=== PATIENT | male | born 1945 | race Caucasian/White ===

== ENCOUNTER 2017-10-20 16:21 | Emergency (ER) | payer MEDICARE, BC ==
[2017-10-20 16:30] VITALS: BP 166/90
[2017-10-20] MEDS ORDERED: COLC0.6T34 PO (17:31)
--- NOTE | 2017-10-20 17:31 | PHYS DOC ---
Past History Past Medical History: Diabetes, Hypertension Past Surgical History: No Surgical History Alcohol Use: None Drug Use: None Adult General Chief Complaint Chief Complaint: FOOT INJURY PAIN HPI HPI Patient is a 71 year old M who presents with right foot pain that started 2 days ago. He describes burning pain associated with redness and swelling to the big toe on his right foot. His pain is worse with palpation and movement. He denies any known injury. 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 He has no other associated symptoms. He hasn't no other exacerbating or relieving factors. Review of Systems Review of Systems Constitutional: Denies fever or chills [] Eyes: Denies change in visual acuity, redness, or eye pain [] HENT: Denies nasal congestion or sore throat [] Respiratory: Denies cough or shortness of breath [] Cardiovascular: No additional information not addressed in HPI [] GI: Denies abdominal pain, nausea, vomiting, bloody stools or diarrhea [] : Denies dysuria or hematuria [] Musculoskeletal: Denies back pain Integument: Denies skin lesions [] Neurologic: Denies headache, focal weakness or sensory changes [] Endocrine: Denies polyuria or polydipsia [] All other systems were reviewed and found to be within normal limits, except as documented in this note. Family History Family History No pertinent family medical history was reported Current Medications Current Medications Current medications reviewed Allergies Allergies Allergies Coded Allergies Type Severity Reaction Last Updated Verified No Known Drug Allergies 10/20/17 No Physical Exam Physical Exam Constitutional: Well developed, well nourished, no acute distress, non-toxic appearance. [] HENT: Normocephalic, atraumatic, Eyes: PERRLA, EOMI, conjunctiva normal, no discharge. [] Neck: Normal range of motion, no tenderness, supple, no stridor. [] Cardiovascular:Heart rate regular rhythm, Lungs & Thorax: Bilateral breath sounds clear to auscultation [] Abdomen: Bowel sounds normal, soft, no tenderness, no masses, no pulsatile masses. [] Skin: Warm, dry, no erythema, Extremities: Right foot: Moderate swelling and erythema over the right first MTP. Moderate tenderness to palpation in that area Neurologic: Alert and oriented X 3, normal motor function, normal sensory function, no focal deficits noted. [] Psychologic: Affect normal, judgement normal, mood normal. [] Current Patient Data Vital Signs Vital Signs Date Time Temp Pulse Resp B/P (MAP) Pulse Ox O2 Delivery O2 Flow Rate FiO2 10/20/17 16:30 97.9 82 16 98 Room Air EKG EKG [] Radiology/Procedures Radiology/Procedures [] Course & Med Decision Making Course & Med Decision Making Pertinent Labs and Imaging studies reviewed. (See chart for details) Raghav did have a uric acid level drawn however he decided not to wait for the results. Instead he preferred to follow-up with his primary care doctor in the next 2 days to discuss the results. Dragon Disclaimer Dragon Disclaimer This electronic medical record was generated, in whole or in part, using a voice recognition dictation system. Departure Departure: Impression: Primary Impression: Acute gout Disposition: HOME, SELF-CARE Condition: STABLE Referrals: ANGEL LUIS KNIGHT MD (PCP) Patient Instructions: Gout Additional Instructions: Raghav was seen in the emergency department for foot pain. No emergency medical condition was found on history or physical exam. His symptoms are most consistent with gout. He was started on colchicine. He is advised follow-up with his primary care doctor in the next 2-3 days for further management. Scripts Colchicine (COLCRYS) 0.6 Mg Tablet 1 TAB PO Q1HR Y for PAIN, #30 TAB 3 Refills Take 2 tabs initially followed by 1/h for a total of 3 doses for acute attack. If pain resolves. Prior to completing 3 doses Prov: BEATA ROSE MD 10/20/17 Problem Qualifiers Primary Impression: Acute gout Gout site: foot Gout etiology: unspecified cause Laterality: right Qualified Codes: M10.9 - Gout, unspecified BEATA ROSE MD Oct 20, 2017 17:31
[2017-10-20] MEDS ORDERED: COLCHICINE 0.6 MG TABLET PO ONE (17:45)
--- NOTE | 2017-10-21 10:48 | RAD ---
EXAM: Right foot 3 views. HISTORY: Right foot pain and swelling. COMPARISON: None. FINDINGS: There is a prominent ossicle at the tip of the lateral malleolus which may represent an old avulsion or an accessory ossicle. There is mild ossification at the insertion of the Achilles tendon. No fractures are identified. 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 Alignment is maintained. IMPRESSION: 1. 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 No acute fracture.
== END 2017-10-20 17:39 | disposition home or self-care (01) ==
LOC: ER 16:21
DX: M10.9 Gout, unspecified (principal); M79.671 Pain in right foot; E11.40 Type 2 diabetes mellitus with diabetic neuropathy, unspecified; I10 Essential (primary) hypertension
CPT/HCPCS: 36415; 73630; 84550; 99285

== ENCOUNTER 2019-05-01 17:42 | Emergency (ER) | payer MEDICARE, BC ==
[~2019-05-01] VITALS: Ht 170.2 cm; Wt 74.8 kg
[~2019-05-01 17:42] MED LIST: COLC0.6T34 PO
[2019-05-01 18:03] VITALS: BP 143/93
[2019-05-01] MEDS ORDERED: HEPARIN for IV BOLUS 10,000 UNIT/10 ML VIAL. ONE (18:14)
--- NOTE | 2019-05-01 18:14 | EKG ---
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
--- NOTE | 2019-05-01 18:25 | PHYS DOC ---
Past History Past Medical History: Diabetes, Hypertension Past Surgical History: No Surgical History Alcohol Use: None Drug Use: None Adult General Chief Complaint Chief Complaint: BLOOD SUGAR PROBLEM HPI HPI Patient is a 73-year-old male presenting to [facility] by private car initially told the triage staff upfront that he was having a blood sugar problem. Then later began to complain of chest pain central chest since 3 PM feeling very dizzy and weak and nauseous Past medical history hypertension also family history of coronary artery disease no other previous cardiac history that he knows of ED course: As soon as staff when out to check on that began to complain of chest pains about the patient right back into room [address] elevation [place] time of EKG was 1806 I interpret this at 1807 reactive to the STEMI at that time exactly. We then called for a stat transfer patient left this emergency department at 1820. I spoke with Dr. Cohen at approximately 1810 will be waiting for the patient at [place]. The risks and benefits of transfer were discussed with the this patient is a stat cardiac catheter she is aware of the risks and benefits and the patient will be transferred in ambulance. Patient was given heparin fentanyl brilinta. My orders and the patient also did receive a dose of aspirin immediately upon the STEMI EKG being done. Blood pressure was in the 140s heart rate was 60 there was no evidence of heart block patient did have poor skin signs but overall was actually a stable as can be considered given the underlying issue Review of Systems Review of Systems Limited by the acuity Current Medications Current Medications Current Medications Medications (Trade) Dose Ordered Sig/Arthur Start Time Stop Time Status Last Admin Dose Admin Fentanyl Citrate (Fentanyl 2ml Vial) 100 mcg STK-MED ONCE 05/01/19 18:14 05/01/19 18:14 DC Heparin Sodium (Porcine) (Heparin Sodium) 10,000 unit STK-MED ONCE 05/01/19 18:14 05/01/19 18:14 DC Ticagrelor (Brilinta) 180 mg 1X ONCE 05/01/19 18:30 05/01/19 18:31 05/01/19 18:23 180 MG Allergies Allergies Allergies Coded Allergies Type Severity Reaction Last Updated Verified No Known Drug Allergies 10/20/17 No Physical Exam Physical Exam Constitutional: Well developed, ill-appearing HENT: Normocephalic, atraumatic, bilateral external ears normal, oropharynx moist, no oral exudates, nose normal. [] Eyes: PERRLA, EOMI, conjunctiva normal, no discharge. [] Neck: Normal range of motion, no tenderness, supple, no stridor. [] Cardiovascular:Heart rate regular rhythm, no murmur [] Lungs & Thorax: Bilateral breath sounds clear to auscultation [] Abdomen: Bowel sounds normal, soft, no tenderness, no masses, no pulsatile masses. [] Skin: Pale cool diaphoretic Back: No tenderness, no CVA tenderness. [] Extremities: No tenderness, no cyanosis, no clubbing, ROM intact, no edema. [] Neurologic: Alert and oriented X 3, normal motor function, normal sensory function, no focal deficits noted. [] Psychologic: Mild anxiety noted Current Patient Data Vital Signs Vital Signs Date Time Temp Pulse Resp B/P (MAP) Pulse Ox O2 Delivery O2 Flow Rate FiO2 05/01/19 18:18 18 98 Room Air 05/01/19 18:03 98.1 59 Lab Results Laboratory Tests Test 05/01/19 17:49 Glucose (Fingerstick) 123 mg/dL (70-99) H EKG EKG []STEMI noted rate 53 this appears to be sinus bradycardia no heart block interpreted by me at 1807 Radiology/Procedures Radiology/Procedures [] Course & Med Decision Making Course & Med Decision Making Critical care time was 45 minutes exclusive of procedures.Pertinent Labs and Imaging studies reviewed. (See chart for details) for stemi critical illness. see hpi for mdm and ed course. [] Dragon Disclaimer Dragon Disclaimer This electronic medical record was generated, in whole or in part, using a voice recognition dictation system. Departure Departure: Impression: Primary Impression: ST elevation [place] (STEMI) Disposition: XFER [facility] HOSP Condition: GUARDED Referrals: ANGEL LUIS KNIGHT MD (PCP) IZABEL WATTS MD May 01, 2019 18:25
[2019-05-01] MEDS ORDERED: TICAGRELOR 90 MG TABLET. PO ONE (18:30)
[2019-05-01] MEDS ORDERED: HEPARIN for IV BOLUS 10,000 UNIT/10 ML VIAL. IV ONE (18:30)
[2019-05-01 18:35] LABS: BASO # 0.2 x10^3/uL (0.0-0.2); BASO % 2 % (0-3); EOS # 0.2 x10^3/uL (0.0-0.7); EOS % 1 % (0-3); HEMATOCRIT 42.2 % (39.0-53.0); HEMOGLOBIN 14.1 g/dL (13.0-17.5); LYMPH # 2.3 x10^3/uL (1.0-4.8); LYMPH % 20 % (24-48); MEAN CORPUSCULAR HEMOGLOBIN 31 pg (25-35); MEAN CORPUSCULAR HGB CONC 33 g/dL (31-37); MEAN CORPUSCULAR VOLUME 93 fL (79-100); MONO # 0.7 x10^3/uL (0.0-1.1); MONO % 6 % (0-9); NEUT # 8.1 x10^3uL (1.8-7.7); NEUT % 71 % (31-73); PLATELET COUNT 237 x10^3/uL (140-400); RED BLOOD COUNT 4.56 x10^6/uL (4.30-5.70); RED CELL DISTRIBUTION WIDTH 13.7 % (11.5-14.5); WHITE BLOOD COUNT 11.5 x10^3/uL (4.0-11.0)
[2019-05-01 18:48] LABS: ALBUMIN 4.1 g/dL (3.4-5.0); ALBUMIN/GLOBULIN RATIO 1.6 (1.0-1.7); CALCIUM 9.8 mg/dL (8.5-10.1); CREATININE 1.5 mg/dL (0.7-1.3); GFR 46.1; POTASSIUM 4.6 mmol/L (3.5-5.1); TOTAL BILIRUBIN 0.4 mg/dL (0.2-1.0); TOTAL PROTEIN 6.7 g/dL (6.4-8.2)
[2019-05-01] MEDS ORDERED: ASPIRIN 81 MG TAB.CHEW PO ONE (21:00)
== END 2019-05-01 18:20 | disposition short-term general hospital (02) ==
LOC: ER 17:42
DX: I21.3 ST elevation (STEMI) myocardial infarction of unspecified site (principal); E11.9 Type 2 diabetes mellitus without complications; I10 Essential (primary) hypertension
CPT/HCPCS: 36415; 80053; 82947; 84484; 85025; 93005; 96374; 96375; 99291; J1644; J3010

== ENCOUNTER → 2019-06-20 | Outpatient (CLI) | payer MEDICARE, BC ==
--- NOTE | 2019-06-20 16:47 | RAD ---
Examination: TESTICULAR/SCROTUM History: Testicular pain for more than one month Comparison/Correlation: None Findings: Scrotal ultrasound exam was performed. Right testicle measures 2.9 cm x 2.6 cm x 1 point centimeter. There are 2 cysts involving the right middle mid pole region. Internal echoes are noted within the cysts. The cysts are well circumscribed. Larger of these measures 0.8 cm x 0.6 x 0.7 cm. The smaller of these measures 0.6 by 0.6 x 0.5 cm. No flow identified within these structures. Internal echoes are noted within these structures. Normal flow is evident with no evidence of testicular torsion or epididymoorchitis. Small left hydrocele is present. No definite right hydrocele. Epididymides are unremarkable. No evidence of varicocele. Impression: Right testicular complicated cysts. Interval follow-up in 4 months to assess stability by ultrasound is recommended to exclude possibility of neoplastic etiology. Small left hydrocele. Electronically signed by: Scooter Israel MD (06/20/2019 4:44 PM) [facility]
== END | disposition home or self-care (01) ==
LOC: US 12:39
PROVIDERS: ATTEND Specialist
DX: L72.8 Other follicular cysts of the skin and subcutaneous tissue (principal); N43.3 Hydrocele, unspecified
CPT/HCPCS: 76870

== ENCOUNTER 2019-07-08 08:25 | Emergency (ER) | payer MEDICARE, BC ==
[~2019-07-08] VITALS: Ht 170.2 cm; Wt 74.8 kg
[2019-07-08] MEDS ORDERED: MECLIZINE 12.5 MG TABLET. PO STA (08:28)
[2019-07-08] MEDS ORDERED: ONDANSETRON PF 4 MG/2 ML VIAL. IVP ONE (08:30)
[2019-07-08] MEDS ORDERED: IV NORMAL SALINE 1,000ML 1,000 ML IV ONE ×2 (08:30→10:45)
--- NOTE | 2019-07-08 09:03 | PHYS DOC ---
Past History Past Medical History: Diabetes, Hypertension, DE Additional Past Medical Histor: ringing in ears Past Surgical History: Other Additional Past Surgical Histo: cornea transplant left eye 6 months ago; cardiac stent Alcohol Use: None Drug Use: None Adult General Chief Complaint Chief Complaint: DIZZY/LIGHT HEADED HPI HPI 73-year-old male presents via EMS with dizziness and vomiting. Patient woke up this morning and while he was pulling up his pants he heard a popping sound in his ear. He then began to get very dizzy which she describes as a room spinning sensation. This was followed by vomiting. He was feeling normal prior to this episode. He recently had a corneal transplant last week. He also had a heart attack earlier this year. He denies shortness of breath, chest pain or diap horesis. On arrival to the ED, the patient is still dizzy and vomiting. He denies fever or chills. Review of Systems Review of Systems Constitutional: Denies fever or chills [] Eyes: Denies change in visual acuity, redness, or eye pain [] HENT: Denies nasal congestion or sore throat [] Respiratory: Denies cough or shortness of breath [] Cardiovascular: No additional information not addressed in HPI [] GI: Vomiting. Denies abdominal pain, bloody stools or diarrhea [] : Denies dysuria or hematuria [] Musculoskeletal: Denies back pain or joint pain [] Integument: Denies rash or skin lesions [] Neurologic: Dizziness. Denies headache, focal weakness or sensory changes [] Endocrine: Denies polyuria or polydipsia [] All other systems were reviewed and found to be within normal limits, except as documented in this note. Current Medications Current Medications Current Medications Medications (Trade) Dose Ordered Sig/Arthur Start Time Stop Time Status Last Admin Dose Admin Meclizine HCl (Antivert) 25 mg 1X STAT 07/08/19 08:28 07/08/19 08:34 DC 07/08/19 08:51 25 MG Ondansetron HCl (Zofran) 4 mg 1X ONCE 07/08/19 08:30 07/08/19 08:34 DC 07/08/19 08:50 4 MG Sodium Chloride 1,000 ml @ 1,000 mls/hr 1X ONCE 07/08/19 08:30 07/08/19 09:29 07/08/19 08:49 1,000 MLS/HR Allergies Allergies Allergies Coded Allergies Type Severity Reaction Last Updated Verified No Known Drug Allergies 10/20/17 No Physical Exam Physical Exam Constitutional: Well developed, well nourished, no acute distress, non-toxic appearance. [] HENT: Normocephalic, atraumatic, bilateral external ears normal, oropharynx moist, no oral exudates, nose normal. [] Eyes: Left pupil dilated due to medication, EOMI, conjunctiva erythematous, no discharge. [] Neck: Normal range of motion, no tenderness, supple, no stridor. [] Cardiovascular:Heart rate regular rhythm, no murmur [] Lungs & Thorax: Bilateral breath sounds clear to auscultation [] Abdomen: Bowel sounds normal, soft, no tenderness, no masses, no pulsatile masses. [] Skin: Warm, dry, no erythema, no rash. [] Back: No tenderness, no CVA tenderness. [] Extremities: No tenderness, no cyanosis, no clubbing, ROM intact, no edema. [] Neurologic: Alert and oriented X 3, normal motor function, normal sensory function, no focal deficits noted. No nystagmus. [] Psychologic: Affect normal, judgement normal, mood normal. [] Current Patient Data Vital Signs Vital Signs Date Time Temp Pulse Resp B/P (MAP) Pulse Ox O2 Delivery O2 Flow Rate FiO2 07/08/19 08:45 58 17 141/74 (96) 99 Room Air 07/08/19 08:25 97.4 EKG EKG [] Radiology/Procedures Radiology/Procedures [] Impressions: CT HEAD INDICATION: Altered mental status COMPARISON: 09/17/2015 Exposure: One or more of the following individualized dose reduction techniques were utilized for this examination: 1. Automated exposure control 2. Adjustment of the mA and/or kV according to patient size 3. Use of iterative reconstruction technique TECHNIQUE: 5 mm contiguous axial images were obtained from the skull base to the vertex in both bone and soft tissue algorithm. FINDINGS: Mild bilateral periventricular white matter hypodensities likely chronic small vessel ischemic disease. No evidence of acute intracranial hemorrhage. No extra-axial fluid collections. No mass effect or midline shift. Ventricular size is appropriate. Basal cisterns are patent. No fractures identified.Cardenas-white differentiation is preserved.Globes and orbits are within normal limits. Paranasal sinuses and mastoid air cells are clear. IMPRESSION: No acute intracranial findings. Electronically signed by: Franki Tabares MD (07/08/2019 11:06 AM) [id number] DICTATED AND SIGNED BY: FRANKI TABARES MD DATE: 07/08/19 1106 CC: ESTELLA ESPINAL DO; ANGEL LUIS KNIGHT MD ~ Course & Med Decision Making Course & Med Decision Making Pertinent Labs and Imaging studies reviewed. (See chart for details) On arrival, the patient was very dizzy. He was given a liter of normal saline and 4 mg of Zofran IV. During my interview, his dizziness had improved. He is very tired. I will give him 25 mg of meclizine for further treatment of his dizziness. The patient was quite sleepy while in the ER. Her period of time he did not have the strength to stand up and walk. He has rested for a while. His labs are unremarkable. His urinalysis is negative for infection. His dizziness has resolved at this time. We will test his ability to stand and walk prior to discharge. When the patient stood up, he was very off balance. He was unable to take steps forward without falling. His only complaint at this time is pressure behind his eyes. I will admit the patient for his dizziness and ambulatory dysfunction. I spoke with Dr. Parker and he has accepted the patient for transfer and admission to [facility]. Given his sudden significant change in balance, there is concern for cerebellar stroke not visible on CT. He will get an MRI [place]. 38 minutes of critical care time was spent on this patient exclusive of other billable procedures. [] Dragon Disclaimer Dragon Disclaimer This electronic medical record was generated, in whole or in part, using a voice recognition dictation system. Departure Departure: Impression: Primary Impression: Dizziness Additional Impressions: Vertigo Ambulatory dysfunction Disposition: 02 XFER [facility] Admitting Physician: Dipika Parker Condition: STABLE Referrals: ANGEL LUIS KNIGHT MD (PCP) Problem Qualifiers ESTELLA ESPINAL DO Jul 08, 2019 09:03
[2019-07-08 09:15] LABS: BASO % 1 % (0-3); EOS # 0.2 x10^3/uL (0.0-0.7); EOS % 2 % (0-3); HEMATOCRIT 40.2 % (39.0-53.0); HEMOGLOBIN 13.6 g/dL (13.0-17.5); LYMPH # 0.7 x10^3/uL (1.0-4.8); LYMPH % 7 % (24-48); MEAN CORPUSCULAR HEMOGLOBIN 32 pg (25-35); MEAN CORPUSCULAR HGB CONC 34 g/dL (31-37); MEAN CORPUSCULAR VOLUME 93 fL (79-100); MONO # 0.4 x10^3/uL (0.0-1.1); MONO % 4 % (0-9); NEUT # 8.7 x10^3uL (1.8-7.7); NEUT % 87 % (31-73); PLATELET COUNT 200 x10^3/uL (140-400); RED BLOOD COUNT 4.31 x10^6/uL (4.30-5.70); RED CELL DISTRIBUTION WIDTH 14.4 % (11.5-14.5)
[2019-07-08 09:27] LABS: ALBUMIN 3.6 g/dL (3.4-5.0); ALBUMIN/GLOBULIN RATIO 1.3 (1.0-1.7); CALCIUM 8.6 mg/dL (8.5-10.1); CREATININE 1.2 mg/dL (0.7-1.3); GFR 59.7; POTASSIUM 4.7 mmol/L (3.5-5.1); TOTAL BILIRUBIN 0.8 mg/dL (0.2-1.0); TOTAL PROTEIN 6.4 g/dL (6.4-8.2)
--- NOTE | 2019-07-08 11:08 | RAD ---
CT HEAD INDICATION: Altered mental status COMPARISON: 09/17/2015 Exposure: One or more of the following individualized dose reduction techniques were utilized for this examination: 1. Automated exposure control 2. Adjustment of the mA and/or kV according to patient size 3. Use of iterative reconstruction technique TECHNIQUE: 5 mm contiguous axial images were obtained from the skull base to the vertex in both bone and soft tissue algorithm. FINDINGS: Mild bilateral periventricular white matter hypodensities likely chronic small vessel ischemic disease. No evidence of acute intracranial hemorrhage. No extra-axial fluid collections. No mass effect or midline shift. Ventricular size is appropriate. Basal cisterns are patent. No fractures identified.Cardenas-white differentiation is preserved.Globes and orbits are within normal limits. Paranasal sinuses and mastoid air cells are clear. IMPRESSION: No acute intracranial findings. Electronically signed by: Franki Tabares MD (07/08/2019 11:06 AM) [id number]
[2019-07-08 12:45] LABS: BARBITURATES NEG (NEG); BENZODIAZEPINES NEG (NEG); CANNABINOIDS NEG (NEG); COCAINE NEG (NEG); METHADONE NEG (NEG); OPIATES NEG (NEG); PHENCYCLIDINE NEG (NEG)
[2019-07-08 12:46] LABS: AMPHETAMINE/METHAMPHETAMINE NEG (NEG)
[2019-07-08 12:49] LABS: RBC,URINE RARE /HPF (0-2); WBC,URINE RARE /HPF (0-4)
[2019-07-08 12:50] LABS: BACTERIA,URINE 0 /HPF (0-FEW); BILIRUBIN,URINE NEG (NEG); CLARITY,URINE CLEAR; COLOR,URINE STRAW; GLUCOSE,URINE 100 mg/dL (NEG); NITRITE,URINE NEG (NEG); SQUAMOUS EPITHELIAL CELL,UR OCC /LPF; UROBILINOGEN,URINE 0.2 mg/dL (0.2 mg/dL)
[2019-07-08 14:46] VITALS: BP 153/76
== END 2019-07-08 15:05 | disposition short-term general hospital (02) ==
LOC: ER 08:25
DX: R42 Dizziness and giddiness (principal); R11.11 Vomiting without nausea; E11.9 Type 2 diabetes mellitus without complications; I10 Essential (primary) hypertension
CPT/HCPCS: 36415; 70450; 80053; 80307; 81001; 85025; 96361; 96374; 99291; J2405; J8597; P9612; J7030

== ENCOUNTER 2021-06-07 17:38 | Observation (INO) | payer MEDICARE, BC ==
[~2021-06-07] VITALS: Ht 170.2 cm; Wt 74.4 kg
--- NOTE | 2021-06-07 18:26 | PHYS DOC ---
Past History Past Medical History: Diabetes, Hypertension, ME Additional Past Medical Histor: ringing in ears (ERICK GLASGOW APRN) Past Surgical History: Other Additional Past Surgical Histo: cornea transplant left eye 6 months ago; cardiac stent (ERICK GLASGOW APRN) Alcohol Use: None Drug Use: None (ERICK GLASGOW APRN) General Adult EDM: Chief Complaint: MECHANICAL FALL HPI: HPI: Patient is a 75-year-old male who presents to the ER for multiple complaints. Patient states that he has been having increasing weakness. He is also reporting a nonproductive cough and nasal drainage. He states that he was getting out of his vehicle today and felt weak and fell backwards hitting his head. He denies losing consciousness. He denies any head or neck pain. He is on Eliquis. Patient denies fever, shortness of breath, chest pain, sore throat, abdominal pain, sick exposures. He is vaccinated for COVID-19. (ERICK GLASGOW APRN) Review of Systems: Review of Systems: 14 body systems of the review of systems have been reviewed. See HPI for pertinent positive and negative responses, otherwise all other systems are negative, nonpertinent or noncontributory (ERICK GLASGOW APRN) Current Medications: Current Meds: Current Medications Medications (Trade) Dose Ordered Sig/Arthur Start Time Stop Time Status Last Admin Dose Admin Sodium Chloride 1,000 ml @ 1,000 mls/hr 1X ONCE 06/07/21 18:30 06/07/21 19:29 UNV (ERICK LGASGOW APRN) Allergies: Allergies: Allergies Coded Allergies Type Severity Reaction Last Updated Verified No Known Drug Allergies 10/20/17 No (ERICK GLASGOW APRN) Physical Exam: PE: Constitutional: Well developed, well nourished, no acute distress, non-toxic appearance. [] HENT: Normocephalic, atraumatic, bilateral external ears normal, oropharynx moist, no oral exudates, nose normal, no bruising noted to head or face. [] Eyes: PERRL, EOMI, conjunctiva normal, no discharge. [] Neck: Normal range of motion, no bony spinal tenderness, supple, no stridor. [] Cardiovascular:Heart rate tachycardic rhythm, no murmur [] Lungs & Thorax: Bilateral breath sounds clear to auscultation [] Abdomen: Bowel sounds normal, soft, no tenderness, no masses, obese, no pulsatile masses. [] Skin: Warm, dry, no erythema, no rash. [] Back: No bony spinal tenderness, normal range of motion Extremities: No tenderness, no cyanosis, no clubbing, ROM intact, no edema, abrasions noted to bilateral elbows, patient has full range of motion of bilateral upper extremities and is neurovascularly intact. [] Neurologic: Alert and oriented X 3, normal motor function, normal sensory function, no focal deficits noted, patient moving all 4 extremities equally. [] Psychologic: Affect normal, judgement normal, mood normal. [] (ERICK GLASGOW APRN) Current Patient Data: Labs: Laboratory Tests Test 06/07/21 19:01 06/07/21 20:10 White Blood Count 5.1 x10^3/uL Red Blood Count 4.33 x10^6/uL Hemoglobin 14.0 g/dL Hematocrit 41.6 % Mean Corpuscular Volume 96 fL Mean Corpuscular Hemoglobin 32 pg Mean Corpuscular Hemoglobin Concent 34 g/dL Red Cell Distribution Width 13.8 % Platelet Count 145 x10^3/uL Neutrophils (%) (Auto) 73 % Lymphocytes (%) (Auto) 13 % Monocytes (%) (Auto) 13 % Eosinophils (%) (Auto) 2 % Basophils (%) (Auto) 0 % Neutrophils # (Auto) 3.7 x10^3uL Lymphocytes # (Auto) 0.6 x10^3/uL Monocytes # (Auto) 0.7 x10^3/uL Eosinophils # (Auto) 0.1 x10^3/uL Basophils # (Auto) 0.0 x10^3/uL Sodium Level 138 mmol/L Potassium Level 5.1 mmol/L Chloride Level 103 mmol/L Carbon Dioxide Level 25 mmol/L Anion Gap 10 Blood Urea Nitrogen 30 mg/dL Creatinine 1.4 mg/dL Estimated GFR (Cockcroft-Gault) 49.7 BUN/Creatinine Ratio 21 Glucose Level 194 mg/dL Lactic Acid Level 2.5 mmol/L Calcium Level 8.9 mg/dL Total Bilirubin 0.7 mg/dL Aspartate Amino Transf (AST/SGOT) 54 U/L Alanine Aminotransferase (ALT/SGPT) 39 U/L Alkaline Phosphatase 124 U/L Troponin I Quantitative < 0.017 ng/mL Total Protein 6.3 g/dL Albumin 3.4 g/dL Albumin/Globulin Ratio 1.2 Urine Collection Type Unknown Urine Color Yellow Urine Clarity Clear Urine pH 5.5 Urine Specific [place] 1.025 Urine Protein Neg Urine Glucose (UA) Neg mg/dL Urine Ketones (Stick) Trace mg/dL Urine Blood Neg Urine Nitrite Neg Urine Bilirubin Neg Urine Urobilinogen Dipstick 0.2 mg/dL Urine Leukocyte Esterase Neg Urine RBC 0 /HPF Urine WBC Rare /HPF Urine Squamous Epithelial Cells None /LPF Urine Bacteria Few /HPF Current Medications Medications (Trade) Dose Ordered Sig/Arthur Route PRN Reason Start Time Stop Time Status Last Admin Dose Admin Sodium Chloride 1,000 ml @ 1,000 mls/hr 1X ONCE IV 06/07/21 18:30 06/07/21 19:29 DC 06/07/21 19:03 Acetaminophen (Tylenol) 650 mg 1X ONCE PO 06/07/21 20:30 06/07/21 20:31 DC (ERICK GLASGOW DISASTER RECOVERY ANALYST) EKG: EKG: EKG performed by ER staff at 1828 shows sinus rhythm with a rate of 92, no STEMI read by Dr. Bill at 1849. [] (ERICK GLASGOW DISASTER RECOVERY ANALYST) Radiology/Procedures: Radiology/Procedures: PROCEDURE: CT HEAD AND CERVICAL SPINE WO Examination: CT head and cervical spine without contrast CT HEAD INDICATION: Reason: fall, hit head, on blood thinners / Spl. Instructions: / History: COMPARISON: 09/17/2015. Exposure: One or more of the following individualized dose reduction techniques were utilized for this examination: 1. Automated exposure control 2. Adjustment of the mA and/or kV according to patient size 3. Use of iterative reconstruction technique TECHNIQUE: 5 mm contiguous axial images were obtained from the skull base to the vertex in both bone and soft tissue algorithm. FINDINGS: Mild bilateral periventricular white matter hypodensities likely chronic small vessel ischemic disease. 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 No evidence of acute intracranial hemorrhage. No extra-axial fluid collections. No mass effect or midline shift. Ventricular size is appropriate. Basal cisterns are patent. No fractures identified.Cardenas-white differentiation is preserved.Globes and orbits are within normal limits. Paranasal sinuses and mastoid air cells are clear. CT CERVICAL SPINE INDICATION: Reason: fall, hit head, on blood thinners / Spl. Instructions: / History: COMPARISON: None Available. Technique: 2.5 mm contiguous axial images were obtained from the skull base through the cervicothoracic junction in both bone and soft tissue algorithm. A dditional sagittal and coronal reconstructions were also performed. FINDINGS: Vertebral body height and alignment are maintained. Cervical lordosis is preserved. The lateral masses of C1 are aligned upon C2. No fractures identified. The bony canal is patent throughout. Moderate intraductal disc height loss identified throughout cervical spine likely degenerative changes. There is C2-C3 fusion.. The paraspinous soft tissues are unremarkable. Visualized intracranial contents are unremarkable. Lung apices are clear. IMPRESSION: 1. No acute intracranial findings. 2. 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 3. No acute fracture cervical spine. 4. Moderate degenerative changes cervical spine. Electronically signed by: Franki Tabares MD (06/07/2021 7:08 PM) [id number] DICTATED AND SIGNED BY: FRANKI TABARES MD DATE: 06/07/211856 CC: ERICK GLASGOW APRN; ANGEL LUIS KNIGHT MD; MONIKA ARELLANO ~MTH0 0 [] (ERICK GLASGOW APRN) Radiology/Procedures: PROCEDURE: PORTABLE CHEST 1V Chest AP portable at 1844: Reason for examination: Cough and weakness. Comparison is made to previous study dated 02/09/2013. Electronic device is present over the mid left thorax. The heart size is normal. Mediastinum is unremarkable. Lung hernandez are clear. No acute bony abnormalities are seen. Impression: No acute cardiopulmonary disease. Electronically signed by: Kalli Stark MD (06/07/2021 9:37 PM) [facility] (SHANITA BILL DO) Heart Score: C/O Chest Pain: No Risk Factors: Risk Factors: DM, Current or recent (<one month) smoker, HTN, HLP, family history of CAD, obesity. Risk Scores: Score 0 - 3: 2.5% MACE over next 6 weeks - Discharge Home Score 4 - 6: 20.3% MACE over next 6 weeks - Admit for Clinical Observation Score 7 - 10: 72.7% MACE over next 6 weeks - Early Invasive Strategies (ERICK GLASGOW APRN) Course & Med Decision Making: Course & Med Decision Making Pertinent Labs and Imaging studies reviewed. (See chart for details) Patient is a 75-year-old male who presents to the ER for generalized weakness. Work-up in the ER consisted of blood work, urinalysis, EKG, chest x-ray, CT scan of head as he did fall and is on blood thinners. Patient treated with a liter of normal saline as he is mildly tachycardic with a rate of 100. CT scan of head was negative for any acute findings.Temperature recheck was 100.0, tylenol ordered. Chest x-ray read by physician is negative for any acute findings. Urinalysis is negative. Patient was noted to have lactic acidosis and elevated kidney function. Patient is very unsteady on feet. Patient's is concerned a bout patient being discharged home as he is weak and has fallen and he is on blood thinners. I spoke to Dr. Victor and discussed patient's case with him and he agreed to admit the patient for observation for fall. Orthostatic vital signs ordered per Dr. Victor. Bridge orders placed and care transferred.[id number] (ERICK GLASGOW APRN) Dragon Disclaimer: Dragon Disclaimer: This electronic medical record was generated, in whole or in part, using a voice recognition dictation system. (ERICK GLASGOW APRN) Departure Departure: Impression: Primary Impression: Generalized weakness Additional Impressions: Fall Qualified Codes: W19.XXXA - Unspecified fall, initial encounter COVID-19 Lactic acidosis Disposition: ADMITTED INPATIENT Admitting Physician: Meet Victor (ERICK GLASGOW APRN) Admitting Physician: Meet Victor (SHANITA BILL DO) Condition: STABLE Referrals: ANGEL LUIS KNIGHT MD (PCP) Attending Signature Attending Signature I have reviewed the PA/BLAST FURNACE SUPERVISOR's note and plan of care. I was available for consultation as needed during the patient's visit in the emergency department. I agree with the clinical impression, plan, and disposition. COVID-19 CRITERIA: The patient was evaluated during the global COVID-19 pandemic, and that diagnosis was suspected/considered upon their initial presentation. Their evaluation, treatment and testing was consistent with current guidelines for patients who present with complaints or symptoms that may be related to COVID-19. (SHANITA BILL DO) ERICK GLASGOW APRN Jun 07, 2021 18:26 SHANITA BILL DO Jun 07, 2021 22:21
[2021-06-07] MEDS ORDERED: IV NORMAL SALINE 1,000ML 1,000 ML IV ONE (18:30)
--- NOTE | 2021-06-07 18:41 | EKG ---
[address] [address] Test Date: 2021-06-07 Test Time: 18:28:09 Pat Name: APRIL AVILA Department: Room: Gender: [facility] Partner: AKOSUA : 1945 Requested By: ERICK GLASGOW Order Number: [id number] Reading MD: Dejan Londono Measurements Intervals [place] Rate: 92 P: 42 NM: 168 QRS: -28 QRSD: 98 T: 38 QT: 346 QTc: 433 Interpretive Statements SINUS RHYTHM LEFTWARD AXIS LOW LIMB LEAD VOLTAGE QRS(T) CONTOUR ABNORMALITY CONSISTENT WITH INFERIOR INFARCT PROBABLY OLD T ABNORMALITY IN ANTERIOR LEADS ABNORMAL ECG Electronically Signed On 06-09-2021 12:47:01 CDT by Dejan Londono
--- NOTE | 2021-06-07 19:11 | RAD ---
Examination: CT head and cervical spine without contrast CT HEAD INDICATION: Reason: fall, hit head, on blood thinners / Spl. Instructions: / History: COMPARISON: 09/17/2015. Exposure: One or more of the following individualized dose reduction techniques were utilized for thi s examination: 1. Automated exposure control 2. Adjustment of the mA and/or kV according to patient size 3. Use of iterative reconstruction technique TECHNIQUE: 5 mm contiguous axial images were obtained from the skull base to the vertex in both bone and soft tissue algorithm. FINDINGS: Mild bilateral periventricular white matter hypodensities likely chronic small vessel ischemic diseas e. 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 No evidence of acute intracranial hemorrhage. No extra-axial fluid collections. No mass effect or midline shift. Ventricular size is appropriate. Basal cisterns are patent. No fractures identified.Cardenas-white differentiation is preserved.Globes and orbits are within normal l imits. Paranasal sinuses and mastoid air cells are clear. CT CERVICAL SPINE INDICATION: Reason: fall, hit head, on blood thinners / Spl. Instructions: / History: COMPARISON: None Available. Technique: 2.5 mm contiguous axial images were obtained from the skull base through the cervicothorac ic junction in both bone and soft tissue algorithm. Additional sagittal and coronal reconstructions were also performed. FINDINGS: Vertebral body height and alignment are maintained. Cervical lordosis is preserved. The l ateral masses of C1 are aligned upon C2. No fractures identified. The bony canal is patent throughout. Moderate intraductal disc height loss identified throughout cervical spine likely degenerative change s. There is C2-C3 fusion.. The paraspinous soft tissues are unremarkable. Visualized intracranial contents are unremarkable. L yan apices are clear. IMPRESSION: 1. No acute intracranial findings. 2. 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 3. No acute fracture cervical spine. 4. Moderate degenerative changes cervical spine. Electronically signed by: Franki Tabares MD (06/07/2021 7:08 PM) [id number]
[2021-06-07 19:26] LABS: BASO % 0 % (0-3); EOS # 0.1 x10^3/uL (0.0-0.7); EOS % 2 % (0-3); HEMATOCRIT 41.6 % (39.0-53.0); LYMPH # 0.6 x10^3/uL (1.0-4.8); LYMPH % 13 % (24-48); MEAN CORPUSCULAR HEMOGLOBIN 32 pg (25-35); MEAN CORPUSCULAR HGB CONC 34 g/dL (31-37); MEAN CORPUSCULAR VOLUME 96 fL (79-100); MONO # 0.7 x10^3/uL (0.0-1.1); MONO % 13 % (0-9); NEUT # 3.7 x10^3uL (1.8-7.7); NEUT % 73 % (31-73); PLATELET COUNT 145 x10^3/uL (140-400); RED BLOOD COUNT 4.33 x10^6/uL (4.30-5.70); RED CELL DISTRIBUTION WIDTH 13.8 % (11.5-14.5); WHITE BLOOD COUNT 5.1 x10^3/uL (4.0-11.0)
[2021-06-07 19:42] LABS: CALCIUM 8.9 mg/dL (8.5-10.1); CREATININE 1.4 mg/dL (0.7-1.3); GFR 49.7; POTASSIUM 5.1 mmol/L (3.5-5.1)
[2021-06-07 19:56] LABS: ALBUMIN 3.4 g/dL (3.4-5.0); ALBUMIN/GLOBULIN RATIO 1.2 (1.0-1.7); TOTAL BILIRUBIN 0.7 mg/dL (0.2-1.0); TOTAL PROTEIN 6.3 g/dL (6.4-8.2)
[2021-06-07] MEDS ORDERED: ACETAMINOPHEN 325 MG TABLET PO ONE (20:30)
[2021-06-07 20:56] LABS: BILIRUBIN,URINE NEG (NEG); CLARITY,URINE CLEAR; COLOR,URINE YELLOW; GLUCOSE,URINE NEG (NEG); NITRITE,URINE NEG (NEG); RBC,URINE 0 /HPF (0-2); UROBILINOGEN,URINE 0.2 mg/dL (0.2 mg/dL); WBC,URINE RARE /HPF (0-4)
[2021-06-07 20:57] LABS: BACTERIA,URINE FEW /HPF (0-FEW)
--- NOTE | 2021-06-07 21:39 | RAD ---
Chest AP portable at 1844: Reason for examination: Cough and weakness. Comparison is made to previous study dated 02/09/2013. Electronic device is present over the mid left thorax. The heart size is normal. Mediastinum is unrem arkable. Lung hernandez are clear. No acute bony abnormalities are seen. Impression: No acute cardiopulmonary disease. Electronically signed by: Kalli Stark MD (06/07/2021 9:37 PM) [facility]
[2021-06-07 22:40] VITALS: BP 149/74
[2021-06-08] MEDS ORDERED: ATOR40TA59 PO (00:47)
[2021-06-08] MEDS ORDERED: VITA25006 PO (00:47)
[2021-06-08] MEDS ORDERED: ACYC-12 PO (00:47)
[2021-06-08] MEDS ORDERED: ASCO500C PO (00:47)
[2021-06-08] MEDS ORDERED: INSU100C4 SQ (00:47)
[2021-06-08] MEDS ORDERED: METF-658 PO (00:47)
[2021-06-08] MEDS ORDERED: BRIM5DRO2 OP (00:47)
[2021-06-08] MEDS ORDERED: ASPI-630 PO (00:47)
[2021-06-08] MEDS ORDERED: CITA20TA6 PO (00:47)
[2021-06-08] MEDS ORDERED: NITR0.4T22 SL (00:47)
[2021-06-08] MEDS ORDERED: DICL100G28 TP (00:47)
[2021-06-08] MEDS ORDERED: PRED5DRO20 OS (00:47)
[2021-06-08] MEDS ORDERED: INSU100I32 SQ (00:47)
[2021-06-08 06:39] VITALS: BP 139/73
[2021-06-08 11:08] VITALS: BP 152/75
[2021-06-08] MEDS ORDERED: INSULIN LISPRO 300 UNITS/3 ML VIAL. SQ SCH (12:30)
[2021-06-08 14:16] LABS: CALCIUM 8.6 mg/dL (8.5-10.1); CREATININE 1.3 mg/dL (0.7-1.3); GFR 54.1; POTASSIUM 4.3 mmol/L (3.5-5.1)
[2021-06-08 15:04] VITALS: BP 164/83
--- NOTE | 2021-06-08 15:34 | HP ---
HISTORY OF PRESENT ILLNESS: The patient is a 75-year-old male patient who was brought to the Emergency Room with multiple complaints. He stated he has been having increasing weakness. He is also reporting a nonproductive cough and nasal drainage. He states that he was getting out of his vehicle today and felt weak and fell backwards, hitting his head. He denied any loss of consciousness. Denied any headache or neck pain. He is on Eliquis, but denied any fever, shortness of breath, chest pain, sore throat, abdominal pain, sick exposure. He was vaccinated for COVID-19 x 2 in November of this year. He was extensively investigated in the Emergency Room and has had an EKG, which showed that he was in sinus rhythm with a heart rate of 92 beats per minute. No ST segment elevation or myocardial infarction. He has had a CT scan of the head and the cervical spine. CT scan of the head showed no evidence of intracranial finding. Small hypodensity, left cerebellum, likely an old infarct. No acute fracture of cervical spine; however, the patient has moderate degenerative changes of cervical spine. His lab work showed white cell count was normal with normal hemoglobin, hematocrit, and platelet count. His chemistry showed that he has chronic kidney disease. Urinalysis was essentially unremarkable; however, his coronavirus by PCR was positive. The patient was admitted with generalized weakness, mechanical fall, COVID-19 infection together with lactic acidosis. He was treated with IV, received 1 liter of normal saline, and continued on his insulin sliding scale as well as Lantus insulin and was admitted for further evaluation and treatment. PAST MEDICAL HISTORY: Significant for type 2 diabetes mellitus, hypertension, hyperlipidemia, history of benign prostatic hypertrophy, left-sided herpes zoster ophthalmicus, glaucoma and according to the patient, has a history of coronary artery disease and stent deployment. He has also had a history of gout. PAST SURGICAL HISTORY: Significant for tonsillectomy, PCI and stent deployment, as well as colonoscopy. ALLERGIES: He has no known drug allergies. MEDICATIONS: He is currently on acyclovir 400 mg twice a day, atorvastatin calcium 40 mg daily, nitroglycerin 0.4 mg sublingually every 5 minutes x 3, aspirin 81 mg once a day, diclofenac sodium 1 gram topically 4 times a day, citalopram hydrobromide 20 mg daily, prednisolone acetate 1 drop to both eyes twice a day. He is also on Combigan eyedrops 1 drop to both eyes twice a day, metformin extended release 500 mg daily. He is on NovoLog insulin 3 units before meals and Basaglar KwikPen 9 units at bedtime. He is on ascorbic acid 500 mg daily, vitamin D3/folic acid 1 capsule once a day. He is on colchicine 0.6 mg every hour as needed. FAMILY HISTORY: He has five brothers, all younger and apparently healthy. He had a half sister who is because of complication of diabetes. His father at age of 66 because of myocardial infarction, and his mother also at age of 66 because of myocardial infarction. SOCIAL HISTORY: He lives with his , has 1 son. He is an ex-smoker, quit 30 years ago. He does not drink alcohol or use recreational drugs. She worked for the [employer]. REVIEW OF SYSTEMS: The patient has glaucoma and left-sided herpes zoster ophthalmicus. However, he denied any macular degeneration. He has ringing in both ears, but denied any nosebleed or stuffy nose or postnasal drip. Denied any sore throat, sore tongue, toothache, hoarseness of voice or difficulty swallowing. Denied any nausea, vomiting, diarrhea or constipation. Denied any hematemesis, melena or hematochezia. Denied any dysuria, frequency or hematuria. PHYSICAL EXAMINATION: GENERAL: On arrival to the Emergency Room, he looked well and was clearly in no apparent respiratory distress. There was no pallor, jaundice, cyanosis or thyromegaly. No jugular venous distention. No lower limb edema. VITAL SIGNS: His heart rate was 105, blood pressure was 153/79, temperature was 99.5, respiratory rate was 18, and oxygen saturation was 92% on room air. HEAD, EYES, EARS, NOSE, AND THROAT: Showed normocephalic, atraumatic. NECK: Supple. HEART: Showed normal first and second heart sounds. No gallop, rub, or murmur. CHEST: Clear to auscultation. No crepitation or rhonchi. ABDOMEN: Distended, soft, nontender. NEUROLOGIC: He was hard of hearing. He definitely has left-sided ptosis, but all other cranial nerves intact. He moves extremities without difficulty, ambulates without assistance or assistive devices. LABORATORY DATA: On arrival, his white cell count was 5100, hemoglobin 14, hematocrit 42, MCV 96 and platelet count of 145,000 with normal manual differential. His chemistry showed a serum sodium 138, potassium 5.1, chloride 103, bicarbonate 25, anion gap of 10, BUN 30, creatinine 1.4. Estimated GFR was 49 mL per minute. His glucose 194 , calcium was 8.9. Total bilirubin, AST, ALT, alkaline phosphatase slightly elevated. Total protein 6.3, albumin was 3.4. Urinalysis showed the urine was yellow, clear with a pH of 5.5, specific gravity of 1.025. Urine was negative for protein, glucose, trace of blood, negative for nitrite and leukocyte esterase. There are no rbc's, rare wbc's and very few bacteria, and his coronavirus by PCR was positive. ASSESSMENT AND PLAN: The patient was admitted with generalized weakness and mechanical fall. He was found to be positive for coronavirus infection, although he is mostly asymptomatic. Has also lactic acidosis that has resolved. JOHANN DR: Antonio TID: [id number]
--- NOTE | 2021-06-08 16:33 | DISCH ---
HOME HEALTH DISCHARGE/MEDS DISCHARGE INFORMATION: Discharge Date: Jun 08, 2021 Final Diagnosis: Problems Medical Problems: (1) COVID-19 Status: Acute (2) Fall Status: Acute (3) Generalized weakness Status: Acute (4) Lactic acidosis Status: Acute Condition on Discharge: Stable CODE STATUS: Code Status: Full HOME HEALTH: Face to Face: I certify this patient is under my care and that I, or a nurse practitioner or physician's library clerical assistant working with me, had a face to face encounter that meets the physician face to face encounter requirements with this patient on 06/08/2021 Medical Condition(s): Other Intermediate For: Medication Management Physical Therapy For: Evalulation/Treatment Occupational Therapy For: Evaluation/Treatment POST DISCHARGE ORDERS: Activity Instructions for Disc: Activity as tolerated DIET AFTER DISCHARGE: Cardiac CERTIFICATION STATEMENT: Certification Statement: Based on the above finding, I certify that this patient is confined to the home and needs intermittent retirement care, physical therapy and/or speech therapy, or continues to need occupational therapy.~ This patient is under my care, and I have initiated the establishment of the plan of care.~ This patient will be followed by myself or a community physician who will periodically review the plan of care. DISCHARGE MEDICATIONS: Home Meds Active Scripts Colchicine (COLCRYS) 0.6 Mg Tablet, 1 TAB PO Q1HR PRN for PAIN, #30 TAB 3 Refills Take 2 tabs initially followed by 1/h for a total of 3 doses for acute attack. If pain resolves. Prior to completing 3 doses Prov:BEATA ROSE MD 10/20/17 Reported Medications Prednisolone Acetate/Pf (Prednisolone Acet 1% Eye Drop) 5 Ml Drops.susp, 1 DROP OS BID for . for 30 Days, #1 BOTTLE 0 Refills 06/08/21 Insulin Glargine,Hum.rec.anlog (Basaglar Kwikpen U-100) 100 Unit/1 Ml Insuln.pen, 9 UNIT SQ QHS for GLUCOSE, EACH 06/08/21 Insulin Aspart (NOVOLOG) 100 Unit/1 Ml Cartridge, 3 UNIT SQ TIDWMEALS for GLUCOSE, SYR 06/08/21 Brimonidine Tartrate/Timolol (COMBIGAN EYE DROPS) 5 Ml Drops, 5 ML OP BID for EYES, DROP 06/08/21 Acyclovir (ACYCLOVIR) 400 Mg Tablet, 1 TAB PO BID for ., #60 TAB 3 Refills 06/08/21 Diclofenac Sodium (Diclofenac Sodium) 100 Gm Gel..gram., 1 RONEN TP PRN QID for FEET for 21 Days, #100 GM 0 Refills 06/08/21 Ascorbic Acid (VITAMIN C) 500 Mg Capsule.er, 1 CAP PO DAILY for SUPPLEMENT for 30 Days, #30 CAP 0 Refills 06/08/21 Vitamin D3/Folic Acid (Noxifol-D3 2,500 Unit-1 mg Tab) 2,500 Unit Tablet, 400 UNIT PO DAILY for SUPPLEMENT, TAB 06/08/21 Atorvastatin Calcium (ATORVASTATIN CALCIUM) 40 Mg Tablet, 1 TAB PO DAILY for HLD, #30 TAB 5 Refills 06/08/21 Metformin Hcl (METFORMIN HCL ER) 500 Mg Tab.er.24h, 1 TAB PO DAILY for GLUCOSE, #90 TAB 3 Refills 06/08/21 Aspirin (ASPIRIN) 81 Mg Tab.chew, 81 MG PO DAILY for HEART HEALTH, TAB 06/08/21 Citalopram Hydrobromide (CITALOPRAM HBR) 20 Mg Tablet, 20 MG PO DAILY for ., TAB 06/08/21 Nitroglycerin (NITROGLYCERIN SubLingual) 0.4 Mg Tab.subl, 0.4 MG SL PRN Q5MIN PRN for CHEST PAIN, ML 06/08/21 BRIAN LOUISE MD Jun 08, 2021 16:33
[2021-06-08] MEDS ORDERED: INSULIN GLARGINE SYRINGE. SQ SCH (21:00)
== END 2021-06-08 17:34 | disposition home or self-care (01) ==
LOC: ER 17:38 → 1 SOUTH 21:49 → INTOOBSV 21:49
PROVIDERS: ADMIT Hospitalist; ATTEND Hospitalist
DX: U07.1 COVID-19 (principal); R53.1 Weakness; I25.10 Atherosclerotic heart disease of native coronary artery without angina pectoris; I12.9 Hypertensive chronic kidney disease with stage 1 through stage 4 chronic kidney disease, or unspecified chronic kidney disease; N18.9 Chronic kidney disease, unspecified; E87.2 Acidosis; I25.2 Old myocardial infarction; E78.5 Hyperlipidemia, unspecified; H93.13 Tinnitus, bilateral; N40.0 Benign prostatic hyperplasia without lower urinary tract symptoms; Z79.01 Long term (current) use of anticoagulants; Z87.891 Personal history of nicotine dependence; Z94.7 Corneal transplant status; Z95.5 Presence of coronary angioplasty implant and graft; W18.30XA Fall on same level, unspecified, initial encounter; Y92.89 Other specified places as the place of occurrence of the external cause; Y93.89 Activity, other specified; Y99.8 Other external cause status
CPT/HCPCS: 36415; 70450; 71045; 72125; 80048; 80053; 81001; 82947; 83605; 84484; 85025; 87426; 93005; 96360; 97162; 97166; 97535; 99285; G0378; J1815; J7030; U0003; G0379

== ENCOUNTER → 2021-12-27 | Outpatient (CLI) | payer MEDICARE, BC ==
[~2021-12-27] MED LIST changes: +ACYC-12 PO; +ASCO500C PO; +ASPI-630 PO; +ATOR40TA59 PO; +BRIM5DRO2 OP; +CITA20TA6 PO; +DICL100G28 TP; +INSU100C4 SQ; +INSU100I32 SQ; +METF-658 PO; +NITR0.4T22 SL; +PRED5DRO20 OS; +VITA25006 PO
--- NOTE | 2021-12-27 17:38 | CARD ---
MR#: [id number] Date of Study: 12/27/2021 Ordering Physician: BILL LONDONO, Referring Physician: Kaela MINA: Toney Rainey [facility] APPROVED REPORT EXAM: Two-dimensional and M-mode echocardiogram with Doppler and color Doppler. Other Information Quality : FairHR: 63bpm Rhythm : NSR INDICATION Cardiac Disease: CAD RISK FACTORS Hypertension Hyperlipidemia 2D DIMENSIONS Left Atrium(2D)3.6 (1.6-4.0cm)IVSd1.1 (0.7-1.1cm) Aortic Root(2D)3.7 (2.0-3.7cm)LVDd5.4 (3.9-5.9cm) LVOT Diameter2.1 (1.8-2.4cm)PWd0.8 (0.7-1.1cm) LVDs4.5 (2.5-4.0cm)FS (%) 18.2 % SV53.6 ml Aortic Valve AoV Peak Duane.116.3cm/sAoV VTI23.3cm AO Peak GR.5.4mmHgLVOT Peak Duane.77.8cm/s LVOT VTI 15.54cmAO Mean GR.3mmHg JEAN (VMAX)2.88nt9NZS (VTI)2.27cm2 Mitral Valve MV E Swkjdfpr20.3cm/sMV E Peak Gr.3mmHg MV DECEL [id number] A Mussmmdc94.6cm/s MV E Mean Gr.1mmHgE/A Ratio0.8 Pulmonary Valve PV Peak Rrdhxtng30.1cm/sPV Peak Grad.2mmHg Tricuspid Valve TR P. Moavhggr675oa/sTR Peak Gr.18mmHg Pulmonary Vein S1 Nqvmpcrm33.4cm/sD2 Uirwvjtp79.2cm/s LEFT VENTRICLE The left ventricle is normal size. There is normal left ventricular wall thickness. The left ventricu lar systolic function is normal. The Ejection Fraction is 55-60%. There is normal LV segmental wall m otion. Transmitral Doppler flow pattern is Grade I-abnormal relaxation pattern. No left ventricle thr ombus noted on this study. There is no ventricular septal defect visualized. There is no left ventric ular aneurysm. There is no mass noted in the left ventricle. RIGHT VENTRICLE The right ventricle is normal size. There is normal right ventricular wall thickness. The right ventr icular systolic function is normal. ATRIA The left atrium size is normal. The right atrium size is normal. The interatrial septum is intact wit h no evidence for an atrial septal defect or patent foramen ovale as noted on 2-D or Doppler imaging. AORTIC VALVE The aortic valve is calcified but opens well. Doppler and Color Flow revealed no significant aortic r egurgitation. There is no significant aortic valvular stenosis. There is no aortic valvular vegetatio n. MITRAL VALVE The mitral valve is thickened but opens well. Mitral annular calcification is mild. There is no evide nce of mitral valve prolapse. There is no mitral valve stenosis. Doppler and Color-flow revealed trac e mitral regurgitation. TRICUSPID VALVE The tricuspid valve is normal in structure and function. Doppler and Color Flow revealed trace tricus pid regurgitation. There is no tricuspid valve prolapse or vegetation. There is no tricuspid valve st enosis. PULMONIC VALVE The pulmonary valve is normal in structure and function. Doppler and Color Flow revealed no pulmonic valvular regurgitation. There is no pulmonic valvular stenosis. GREAT VESSELS The aortic root is normal in size. The ascending aorta is normal in size. The pulmonary artery is nor mal. The IVC is normal in size and collapses >50% with inspiration. PERICARDIAL EFFUSION There is no pleural effusion. There is no evidence of significant pericardial effusion. Critical Notification Critical Value: No <Conclusion> The left ventricular systolic function is normal. The Ejection Fraction is 55-60%. There is normal LV segmental wall motion. Transmitral Doppler flow pattern is Grade I-abnormal relaxation pattern. Trace mitral regurgitation. Trace tricuspid regurgitation. There is no evidence of significant pericardial effusion. Signed by : Bill Londono, Electronically Approved : 12/27/2021 17:37:52
== END ==
LOC: ECHO 09:07
PROVIDERS: ATTEND Internal Medicine Cardiovascular Disease
DX: I35.8 Other nonrheumatic aortic valve disorders (principal); I25.10 Atherosclerotic heart disease of native coronary artery without angina pectoris
CPT/HCPCS: 93306